=== PATIENT | female | born 1995 | race Two or more races ===

== ENCOUNTER 2017-01-23 21:58 | Emergency (ER) | payer SELFPAY ==
[~2017-01-23] VITALS: Ht 170.2 cm; Wt 52.2 kg
--- NOTE | 2017-01-23 22:10 | NUR ---
To bed 16 a 21 yo female bibself with c/o of lower back pain and urgency to urinate. Patient is aaox4, ambulatory, no s/s of acute distress, breathing even and unlabored. Afebriles. VSS. Awaiting for er md carmona.
--- NOTE | 2017-01-23 22:30 | NUR ---
urine collected via clean catch.
[2017-01-23 22:48] LABS: BILIRUBIN,URINE 1+ (NEGATIVE); BLOOD, URINE NEGATIVE Ery/uL (NEGATIVE); COLOR,URINE YELLOW (YELLOW); KETONES,URINE 2+ (NEGATIVE); LEUKOCYTE ESTERASE ,URINE NEGATIVE (NEGATIVE); NITRITE, URINE NEGATIVE (NEGATIVE); PH,URINE 6.5 (5.0-8.0); PROTEIN,URINE 2+ mg/dl (NEGATIVE); UGLUCOSE NEGATIVE (NEGATIVE)
[2017-01-23 22:52] LABS: APPEARANCE,URINE CLEAR (CLEAR)
[2017-01-23 22:55] LABS: ADD URINE CULTURE NO; BACTERIA,URINE None seen /HPF (None Seen); MUCUS,URINE Many /LPF (None Seen); PREGNANCY TEST URINE QUAL NEGATIVE (NEGATIVE); RBC,URINE 0-2 /HPF (0-2); SQUAMOUS EPITHELIAL CELL,UR Moderate /HPF (None Seen); WBC,URINE 0-3 /HPF (0-3)
--- NOTE | 2017-01-24 00:40 | NUR ---
Patient discharged to home in stable condition. Written and verbal after care instructions given. Patient verbalizes understanding of instruction. Patient is ambulatory with a steady gait.
[2017-01-24 00:42] VITALS: BP 110/69
[2017-01-27 01:11] LABS: *NEISSERIA GONORRHOEAE NAA Negative (Negative); CHLAMYDIA TRACHOMATIS NAA Negative (Negative)
== END 2017-01-24 00:42 | disposition home or self-care (01) ==
LOC: ER 21:59
DX: M54.5 Low back pain (principal); Z88.1 Allergy status to other antibiotic agents
CPT/HCPCS: 81000-TC; 84703-TC; 87491; 87591; A4606; Z7610